=== PATIENT | female | born 1970 | race Caucasian/White ===

== ENCOUNTER 2016-07-05 12:03 | Emergency (ER) | payer SELFPAY ==
[~2016-07-05] VITALS: Ht 165.1 cm; Wt 76.4 kg
[~2016-07-05 12:03] MED LIST: FIORINAL2 PO; PROM25SU8 PO
[2016-07-05 12:09] VITALS: BP 120/61; PULSE 68; RESP 16; TEMP 98.3; O2SAT 97
[2016-07-05] MEDS ORDERED: PENI250T59 PO (13:10)
--- NOTE | 2016-07-05 13:11 | PD ---
HPI Chief Complaint: Oral / Dental Pain or Problem Time Seen by Provider: 13:10 Travel History International Travel<30 days: No Contact w/Intl Traveler<30days: No Traveled to known affect area: No History of Present Illness HPI 45-year-old female presents to the emergency department for evaluation of left upper dental pain for 2 days. Patient states that she has poor dentition and has had ongoing left upper dental pain for several months. States that this acutely worsened over the past 2 days. States that she has a foul taste in her mouth and feels that she may have infection. She denies any fever, chills, nausea, vomiting, facial swelling, difficulty eating or drinking. States that she has an appointment with her dentist but that she will need antibiotics before she can get the tooth pulled. No other complaints. PFSH Past Medical History Diminished Hearing: No Immunizations Current: Yes Migraines: Yes ?: Not : 3 Para: 2 Miscarriage: 1 Past Surgical History Surgical History: No Previous Surgery Section: Yes (X 2) Social History Alcohol Use: No Tobacco Use: Yes (1/2 PPD) Substance Use: No Allergies-Medications (Allergen,Severity, Reaction): Coded Allergies: No Known Allergies (Verified , 07/05/16) Reported Meds & Prescriptions Reported Meds & Active Scripts Active Penicillin Vk (Penicillin V Potassium) 250 Mg Tab 500 Mg PO Q8H 10 Days Review of Systems Except as stated in HPI: all other systems reviewed are Neg Physical Exam Narrative GENERAL: Well-nourished and well-developed pleasant female patient in no acute distress who is nontoxic appearing. SKIN: Warm and dry. HEAD: Normocephalic and atraumatic. No facial swelling. EYES: No injection, drainage, or hyphema noted. PERRLA. EOMI. ENT: No nasal drainage noted. Oropharynx is clear and the TMs are normal with good landmarks. DENTAL: Left upper tooth #12 with dental caries and tenderness to palpation. Multiple dental caries on exam with many teeth missing. No erythema, discharge or drainage or abscess. NECK: Supple and the trachea is midline. CARDIOVASCULAR: Regular rate and rhythm. RESPIRATORY: Breath sounds are equal bilaterally with no accessory muscle use, wheezing, rhonchi, or crackles. MUSCULOSKELETAL: No obvious deformities, swelling, cyanosis, or ecchymosis is present throughout the upper and lower extremities. Patient has full range of motion without any signs of neurovascular compromise. NEUROLOGICAL: Awake, alert, and oriented. Normal speech and gait. Cranial nerves are grossly intact. Data Data Last Documented VS Vital Signs Date Time Temp Pulse Resp B/P Pulse Ox O2 Delivery O2 Flow Rate FiO2 07/05/16 12:09 98.3 68 16 120/61 97 MDM Medical Decision Making Medical Screen Exam Complete: Yes Emergency Medical Condition: Yes Differential Diagnosis Dental caries versus dental pain versus dental infection Narrative Course 45-year-old female presents to the emergency department for evaluation of left upper dental pain. Patient is afebrile, vital signs are stable. She has history of poor dentition. She is here requesting a prescription for penicillin so that she can go see her dentist. She'll be provided a prescription for antibiotics. Advised to keep the appointment with her dentist. Diagnosis Primary Impression: Pain, dental Referrals: Dentist Patient Instructions: Dental Caries (ED), General Instructions Additional Instructions: Take medication as prescribed with food and a full glass of water. Follow-up with your Dentist. Return to the ED for any acute worsening of symptoms. Med/Other Pt SpecificInfo: Prescription(s) given Scripts Penicillin V Potassium (Penicillin Vk)250 Mg [id number] Mg PO Q8H 10 Days Ref 0 Prov:Ilda Rossi DO 07/05/16 Disposition: 01 DISCHARGE HOME Condition: Stable Alma Nguyen Jul 05, 2016 13:11
== END 2016-07-05 13:30 | disposition home or self-care (01) ==
LOC: PHEFT 12:03
DX: K08.89 Other specified disorders of teeth and supporting structures (principal); F17.210 Nicotine dependence, cigarettes, uncomplicated
CPT/HCPCS: 99282